=== PATIENT | male | born 1960 | race Caucasian/White ===

== ENCOUNTER → 2018-10-27 | Outpatient (CLI) | payer BC ==
[~2018-10-27] MED LIST: ASPI-630 PO; BUPIVACAINE-EPI 0.25%-1:200000 MPF 30 ML VIAL. ONE; LISI-334 PO; ROPI0.5T PO; SIMV20TA3 PO
[2018-10-27 12:23] VITALS: BP 138/97
--- NOTE | 2018-10-27 12:26 | PDOC4 ---
Operative Report DATE 10/27/2018 Preop Diagnosis Posterior neck mass and right lower back mass Post-op Diagnosis Same Operation Performed Excision of posterior neck mass and right lower back mass and injection of left lower back area with pain. Dictation: Patient is a 57-year-old woman complained of a posterior neck mass is been getting larger and at times is painful also has a mass in the right lower back where he previously had a lipoma removed he also complains of an area in the left lower back is tender where he previously had a lipoma removed. Procedure of excision of masses was explained to the patient detail was benefits were also discussed including bleeding infection and alternatives to this procedure also discussed with patient who seemed to understand and gave both verbal and written consent to have the procedure performed. Patient was taken to the minor room placed in the prone positioning area on the posterior neck was prepped with ChloraPrep and area over the mass was injected with quarter percent Marcaine with epinephrine once this was nests size a incision was made with 15 blade scalpel was carried down through the subcutaneous tissue using electroca utery divided hemostasis down to what appeared to be a lipomatous mass 6 x 6 cm this was sharply excised with Metzenbaum scissors and 15 blade scalpel and sent for pathology. The wound was then closed in 2 layers a deep layer running 3-0 Vicryl and skin was approximate for septic and a Monocryl Mastisol Steri-Strips and island dressing were applied. Attention then turned to the right lower back area over the mass was injected percent Marcaine with epinephrine incision was made with 15 blade scalpel this carried down through subcutaneous tissues the mass was excised using 15 blade scalpel and Metzenbaum scissors this was 2 x 2 centimeters and sent for pathology. Left lower back previous excision site somewhat tender no palpable mass in this area likely secondary to scar tissue with entrapped nerve this area was injected with quarter percent Marcaine with epinephrine to see if there was improvement with pain. The right lower back incision was closed with deep layer 3-0 Vicryl and subcuticular layer of 4-0 Monocryl Mastisol Steri-Strips and island dressings were applied. Patient tolerated procedure well without any difficulties and was discharged home in stable condition. Surgeon Nirav ANESTHESIA PROPOSED: LOCAL Blood Loss 5 mL Specimen Posterior neck mass lipoma, right lower back mass lipoma Complications None SANTI MITCHELL MD Oct 27, 2018 12:26
--- NOTE | 2018-10-27 12:27 | DISCH ---
DISCHARGE INSTRUCTIONS-DC Condition on Discharge Condition on Discharge: Stable Activity after Discharge Activity Instructions for Disc: Avoid exertion Diet after Discharge Diet after Discharge: Regular Wound/Incision Care Other wound/incision instructi: Denita shower in 24 hours Contacting the DRClay after DC Call your doctor for: If your condition worsens Follow-Up Follow up with: Dr. Mitchell in 3 weeks SANTI MITCHELL MD Oct 27, 2018 12:27
--- NOTE | 2018-11-01 15:06 | PATHOLOGY ---
[facility] Accession Number: [id number] . 01 Material submitted: . PART A: neck - LIPOMA, POSTERIOR NECK. Modifiers: posterior PART B: back - RIGHT POSTERIOR BACK. Modifiers: right, posterior . 01 Clinical history: . Lipoma. . 02 Diagnosis: A. Segments of fibroadipose tissue, posterior neck: - Lipoma. . B. Segment of fibroadipose tissue, right posterior back: - Lipoma. (JPM:tye; 11/01/2018) QMS/11/01/2018 . 02 Comment: There is no evidence of malignancy. (JPM:tye; 11/01/2018) . 02 Electronically signed: . Ermias Parr MD, Pathologist NPI- [id number] . 01 Gross description: . A. Received in formalin labeled "[place]o, head posterior neck" is a 4.5 x 4.5 x 2.4 cm aggregate of yellow-fuchs lobulated soft tissue fragments. The specimen is not inked due to its fragmented nature. Upon sectioning, the cut surface is yellow-fuchs and lobulated without hemorrhage or necrosis. [employer] sections are submitted in cassettes A1-A3, with two sections in each cassette. . B. Received in formalin labeled "Jas Cano, right posterior back" is a fuchs-yellow lobulated soft tissue mass measuring 3.0 x 2.3 x 1.5 cm. The external surface is inked black. The specimen is sectioned to reveal a yellow-fuchs homogeneous cut surface without hemorrhage or necrosis. [place] [employer] sections are submitted in cassettes B1-B2. ([facility] [place] [facility] [place] 10/28/2018) SYC/SYC . 02 Pathologist provided ICD-10: D17.79 . 02 CPT . 602611, 465219 Specimen Comment: A courtesy copy of this report has been sent to Specimen Comment: [phone], . Specimen Comment: Report sent to / DR SWAN Performed at: 01 [facility] [id number] [address], [place] [id number] MD Branden Hollingsworth MD Phone: [phone] Performed at: 02 [facility] [address] [place], [place] [id number] MD Ermias Parr MD Phone: [phone]
== END ==
LOC: SURG 10:00
PROVIDERS: ATTEND Surgery
DX: D17.0 Benign lipomatous neoplasm of skin and subcutaneous tissue of head, face and neck (principal); D17.1 Benign lipomatous neoplasm of skin and subcutaneous tissue of trunk; F17.210 Nicotine dependence, cigarettes, uncomplicated; I10 Essential (primary) hypertension; Z98.890 Other specified postprocedural states; Z79.82 Long term (current) use of aspirin; Z88.8 Allergy status to other drugs, medicaments and biological substances
CPT/HCPCS: 21552; 21930; 88304; J3490; 11402; 11442